=== PATIENT | female | born 1930 | race Caucasian/White ===

== ENCOUNTER 2017-08-05 13:49 | Emergency (ER) | payer OTHER ==
[~2017-08-05] VITALS: Ht 157.5 cm; Wt 58.7 kg
[2017-08-05 14:04] VITALS: TEMP 36.7; Ht 157.5 cm; Wt 58.7 kg
[2017-08-05] MEDS ORDERED: DONE10TA12 PO (15:43)
[2017-08-05] MEDS ORDERED: BIMA0.01 OPB (15:43)
[2017-08-05] MEDS ORDERED: ASPI81TA28 PO (15:43)
[2017-08-05] MEDS ORDERED: NMN10 PO (15:43)
[2017-08-05] MEDS ORDERED: BRIM0.2S OPB (15:43)
[2017-08-05] MEDS ORDERED: FERR325T18 PO (15:43)
[2017-08-05] MEDS ORDERED: CALC-354 PO (15:43)
[2017-08-05 16:06] LABS: BASO % 0.3 %; BASO ABS # 0.02 K/uL (0-0.2); COMPLETE YES; EOS % 1.7 %; HEMATOCRIT 38.9 % (37-47); IG% 0.2 %; LYMPH % 23.2 %; LYMPH ABS # 1.49 K/uL (1.2-3.4); MEAN CELL VOLUME 94.2 fL (80-100); MEAN CORPUSCULAR HEMOGLOBIN 31.2 pg (25-34); MEAN CORPUSCULAR HGB CONC 33.2 g/dl (32-36); MEAN PLATELET VOLUME 10.8 fL (7.4-10.4); NEUT % 62.6 %; PLATELET COUNT 180 K/uL (130-400); RED BLOOD COUNT 4.13 M/uL (4.2-5.4); WHITE BLOOD COUNT 6.41 K/uL (4.8-10.8)
[2017-08-05 16:16] LABS: PROTHROMBIN TIME (PATIENT) 10.7 SECONDS (9.0-12.0)
[2017-08-05 16:31] LABS: BLOOD UREA NITROGEN 15 mg/dl (7-18); BUN/CREATININE RATIO 22.4 (10-20); CALCIUM 8.9 mg/dl (8.5-10.1); CARBON DIOXIDE 29 mmol/L (21-32); CHLORIDE 102 mmol/L (98-107); CREATININE 0.67 mg/dl (0.60-1.20); GLUCOSE 85 mg/dl (70-99); POTASSIUM 3.7 mmol/L (3.5-5.1); SODIUM 137 mmol/L (136-145)
[2017-08-05 16:43] LABS: URINE APPEARANCE CLOUDY (CLEAR); URINE BILIRUBIN NEG (NEG); URINE COLOR YELLOW; URINE EPITHELIAL CELL AUTO >30 /lpf (0-5); URINE NITRITE POS (NEG); URINE PH 5.5 (4.5-7.5); UROBILINOGEN NEG (NEG)
[2017-08-05 16:46] LABS: MANUAL MICROSCOPIC REQUIRED? NO; REVIEW REQ? YES
--- NOTE | 2017-08-05 16:50 | DIAGNOSTIC IMAGING REPORT ---
HEAD CT NONCONTRAST CT DOSE: HISTORY: eval for bleed TECHNIQUE: Multiaxial CT images of the head were performed without the use of intravenous contrast. Automated exposure control was utilized for this study. A dose lowering technique was utilized adhering to the principles of ALARA. Comparison: None. Findings: Trace fluid within the right frontal ethmoid recess. The mastoid air cells are clear. Mild right infraorbital soft tissue swelling. The calvarium and skull base are intact. There is no mass, hematoma, midline shift, acute infarct. White matter hypodensity is nonspecific but suggestive of microvascular ischemic change. The ventricles and sulci demonstrate mild age-related involutional changes. 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 Impression: No acute intracranial abnormality. Atrophy and microvascular ischemic changes. Electronically signed by: Georges Sherwood M.D. 08/05/2017 4:48 PM Dictated Date/Time: 08/05/2017 4:44 PM
--- NOTE | 2017-08-05 16:55 | DIAGNOSTIC IMAGING REPORT ---
CT FACIAL BONES-MXILLOFAC WITHOUT CT DOSE: 742.57 mGy.cm CLINICAL HISTORY: Facial pain status post trauma COMPARISON STUDY: No previous studies for comparison. TECHNIQUE: Helical images were acquired in the transverse plane. The study was reviewed and analyzed on the independent 3-D workstation. A dose lowering technique was utilized adhering to the principles of ALARA. The pterygoid plates appear intact. The zygomatic arches appear intact. The globes appear intact. There is no evidence of orbital emphysema. There is a defect in the right lamina papyracea, likely but not definitively old. No orbital floor fractures are visualized. The mandibular condyles appear intact. There is a subtle nasal bone deformity, likely old. There is soft tissue swelling in the region of the right nasal orbital fold IMPRESSION: 1. Soft tissue swelling in the region of the right nasal orbital fold 2. Small age-indeterminate defect in the right lamina papyracea Electronically signed by: Avelino Hamilton M.D. 08/05/2017 4:54 PM Dictated Date/Time: 08/05/2017 4:48 PM
[2017-08-05] MEDS ORDERED: CIPROFLOXACIN 500 MG TAB PO STA (17:08)
[2017-08-05] MEDS ORDERED: CIPR-255 PO (17:08)
--- NOTE | 2017-08-05 17:09 | DIAGNOSTIC IMAGING REPORT ---
CHEST 2 VIEWS ROUTINE CLINICAL HISTORY: Suspected pneumonia. Cough. COMPARISON STUDY: No previous studies for comparison. FINDINGS: The heart is enlarged. There are postsurgical changes of a midline sternotomy and valvular replacement. There is mild interstitial thickening but no evidence of overt failure. There are no pleural effusions. There is no focal pulmonary consolidation. IMPRESSION: 1. Postsurgical changes. No evidence of focal pulmonary consolidation Electronically signed by: Avelino Hamilton M.D. 08/05/2017 5:08 PM Dictated Date/Time: 08/05/2017 5:06 PM
[2017-08-05 17:30] VITALS: BP 196/72; PULSE 68; O2SAT 96
--- NOTE | 2017-08-05 22:31 | EMERGENCY ROOM VISIT NOTE ---
History Report prepared by Elpidioibbrooke: Jailyn Vaca Under the Supervision of: Dr. Ilya Kyle M.D. First contact with patient: 15:00 Chief Complaint: URINARY SYMPTOMS Stated Complaint: UTI,FELL AND HIT HER R EYE Nursing Triage Summary: Pt has contusion around right eye. Pt family states she fell last night while getting out of bed. Also noticed patient has UTI symptoms like frequency and urgency. History of Present Illness The patient is an 87 year old female who presents to the Emergency Room with complaints of a fall last night. She is accompanied by family. She denies any urinary symptoms. Her family states she has been urinating more frequently and her urine has a foul odor. The patient reports she fell yesterday as she was getting out of bed to use the bathroom. She believes she tripped over something and injured the area around her right eye during the fall. She denies any LOC or feeling weak before she fell. She denies having any symptoms prior to the fall. She denies any melena or hematochezia. She also denies any neck pain, back pain or nausea. She did not injure her hips during the fall. She can still feel normal sensation in her legs. She does not take daily blood thinners. The patient admits to intermittent chest pain for a long time and states the last time she experienced the pain was last week. 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 A total of 10 systems reviewed and were otherwise negative. 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 Family History Cancer Diabetes mellitus Heart disease Lung disease Social History Smoking Status: Never Smoker Alcohol Use: none Drug Use: none Marital Status: Housing Status: lives with family Occupation Status: retired Current/Historical Medications Scheduled Aspirin (Aspirin Ec), 81 MG PO DAILY Bimatoprost (Lumigan), 1 DROPS OPB HS Brimonidine Tartrate-Timolol M (Combigan), 1 DROP OPB QAM Calcium Carbonate-Cholecalcife (Caltrate 600+D), 1 TAB PO BID Ciprofloxacin Hcl (Cipro), 500 MG PO BID Donepezil Hydrochloride (Aricept), 10 MG PO DAILY Ferrous Gluconate (Ferrous Gluconate), 324 MG PO DAILY Memantine (Namenda), 10 MG PO BID Allergies Coded Allergies: Naproxen (Verified Allergy, Unknown, RASH, HIVES, 08/05/17) Sulfa Antibiotics (Verified Allergy, Unknown, HIVES,RASH, 08/05/17) Physical Exam Vital Signs Date Time Temp Pulse Resp B/P (MAP) Pulse Ox O2 Delivery O2 Flow Rate FiO2 08/05/17 17:30 68 18 196/72 96 08/05/17 16:30 65 16 216/75 96 Room Air 08/05/17 15:40 59 14 199/67 96 Room Air 08/05/17 14:04 36.7 64 16 192/71 95 Room Air Physical Exam Constitutional: Vital signs reviewed. Eyes: Pupils are equal round reactive to light. Conjunctiva are noninjected. ENT: Pharynx is clear without erythema or exudate. Mucous membranes are moist. Neck supple without meningeal signs. No midline tenderness to the cervical spine. Ecchymosis under the right eye with tenderness over superior orbital rim. No givens's sign. No midfacial mobility or tenderness. Respiratory: Clear to auscultation bilaterally. Breath sounds are equal bilaterally. Cardiovascular: Regular rate and rhythm. No rubs or gallops. GI: Soft, nondistended and nontender. Bowel sounds are present. Musculoskeletal: No peripheral edema. No lower extremity tenderness. No hip or LE tenderness. No CVA tenderness. Integumentary: No cyanosis. Neurological: The patient is awake and alert. Cranial nerves II-XII are intact. Motor is 5 out of 5 all extremities. Sensation is intact to light touch all extremities. Normal speech. No pronator drift. Psychiatric: Normal affect. Medical Decision & Procedures ER Provider Diagnostic Interpretation: Radiology results as stated below per my review and the radiologist's interpretation: HEAD CT NONCONTRAST CT DOSE: HISTORY: eval for bleed TECHNIQUE: Multiaxial CT images of the head were performed without the use of intravenous contrast. Automated exposure control was utilized for this study. A dose lowering technique was utilized adhering to the principles of ALARA. Comparison: None. Findings: Trace fluid within the right frontal ethmoid recess. The mastoid air cells are clear. Mild right infraorbital soft tissue swelling. The calvarium and skull base are intact. There is no mass, hematoma, midline shift, acute infarct. White matter hypodensity is nonspecific but suggestive of microvascular ischemic change. The ventricles and sulci demonstrate mild age-related involutional changes. 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 Impression: No acute intracranial abnormality. Atrophy and microvascular ischemic changes. Electronically signed by: Georges Sherwood M.D. 08/05/2017 4:[address] FACIAL BONES-MXILLOFAC WITHOUT CT DOSE: 742.57 mGy.cm CLINICAL HISTORY: Facial pain status post trauma COMPARISON STUDY: No previous studies for comparison. TECHNIQUE: Helical images were acquired in the transverse plane. The study was reviewed and analyzed on the independent 3-D workstation. A dose lowering technique was utilized adhering to the principles of ALARA. The pterygoid plates appear intact. The zygomatic arches appear intact. The globes appear intact. There is no evidence of orbital emphysema. There is a defect in the right lamina papyracea, likely but not definitively old. No orbital floor fractures are visualized. The mandibular condyles appear intact. There is a subtle nasal bone deformity, likely old. There is soft tissue swelling in the region of the right nasal orbital fold IMPRESSION: 1. Soft tissue swelling in the region of the right nasal orbital fold 2. Small age-indeterminate defect in the right lamina papyracea Electronically signed by: Avelino Hamilton M.D. 08/05/2017 4:54 PM CHEST 2 VIEWS ROUTINE CLINICAL HISTORY: Suspected pneumonia. Cough. COMPARISON STUDY: No previous studies for comparison. FINDINGS: The heart is enlarged. There are postsurgical changes of a midline sternotomy and valvular replacement. There is mild interstitial thickening but no evidence of overt failure. There are no pleural effusions. There is no focal pulmonary consolidation. IMPRESSION: 1. Postsurgical changes. No evidence of focal pulmonary consolidation Electronically signed by: Avelino Hamilton M.D. 08/05/2017 5:08 PM Laboratory Results 08/05/17 15:55 Red Blood Count 4.13, Mean Corpuscular Volume 94.2, Mean Corpuscular Hemoglobin 31.2, Mean Corpuscular Hemoglobin Concent 33.2, Mean Platelet Volume 10.8, Neutrophils (%) (Auto) 62.6, Lymphocytes (%) (Auto) 23.2, Monocytes (%) (Auto) 12.0, Eosinophils (%) (Auto) 1.7, Basophils (%) (Auto) 0.3, Neutrophils # (Auto ) 4.01, Lymphocytes # (Auto) 1.49, Monocytes # (Auto) 0.77, Eosinophils # (Auto ) 0.11, Basophils # (Auto) 0.02 08/05/17 15:55 Test 08/05/17 15:55 08/05/17 16:28 White Blood Count 6.41 K/uL (4.8-10.8) Red Blood Count 4.13 M/uL (4.2-5.4) Hemoglobin 12.9 g/dL (12.0-16.0) Hematocrit 38.9 % (37-47) Mean Corpuscular Volume 94.2 fL (80-100) Mean Corpuscular Hemoglobin 31.2 pg (25-34) Mean Corpuscular Hemoglobin Concent 33.2 g/dl (32-36) Platelet Count 180 K/uL (130-400) Mean Platelet Volume 10.8 fL (7.4-10.4) Neutrophils (%) (Auto) 62.6 % Lymphocytes (%) (Auto) 23.2 % Monocytes (%) (Auto) 12.0 % Eosinophils (%) (Auto) 1.7 % Basophils (%) (Auto) 0.3 % Neutrophils # (Auto) 4.01 K/uL (1.4-6.5) Lymphocytes # (Auto) 1.49 K/uL (1.2-3.4) Monocytes # (Auto) 0.77 K/uL (0.11-0.59) Eosinophils # (Auto) 0.11 K/uL (0-0.5) Basophils # (Auto) 0.02 K/uL (0-0.2) RDW Standard Deviation 46.0 fL (36.4-46.3) RDW Coefficient of Variation 13.3 % (11.5-14.5) Immature Granulocyte % (Auto) 0.2 % Immature Granulocyte # (Auto) 0.01 K/uL (0.00-0.02) Prothrombin Time 10.7 SECONDS (9.0-12.0) Prothromb Time International Ratio 1.0 (0.9-1.1) Activated Partial Thromboplast Time 24.8 SECONDS (21.0-31.0) Partial Thromboplastin Ratio 1.0 Anion Gap 6.0 mmol/L (3-11) Est Creatinine Clear Calc Drug Dose 48.6 ml/min Estimated GFR () 92.9 Estimated GFR (Non- 80.2 BUN/Creatinine Ratio 22.4 (10-20) Calcium Level 8.9 mg/dl (8.5-10.1) Troponin I < 0.015 ng/ml (0-0.045) Urine Color YELLOW Urine Appearance CLOUDY (CLEAR) Urine pH 5.5 (4.5-7.5) Urine Specific [place] 1.020 (1.000-1.030) Urine Protein NEG (NEG) Urine Glucose (UA) NEG (NEG) Urine Ketones TRACE (NEG) Urine Occult Blood 2+ (NEG) Urine Nitrite POS (NEG) Urine Bilirubin NEG (NEG) Urine Urobilinogen NEG (NEG) Urine Leukocyte Esterase MODERATE (NEG) Urine WBC (Auto) >30 /hpf (0-5) Urine RBC (Auto) 0-4 /hpf (0-4) Urine Hyaline Casts (Auto) 5-10 /lpf (0-5) Urine Epithelial Cells (Auto) >30 /lpf (0-5) Urine Bacteria (Auto) 4+ (NEG) Laboratory results as reviewed by me. Medications Administered Medications (Trade) Dose Ordered Sig/Wilfredo Route Start Time Stop Time Status Last Admin Dose Admin Ciprofloxacin (Cipro Tab) 500 mg NOW STAT PO 08/05/17 17:08 08/05/17 17:09 DC 08/05/17 17:25 500 MG ECG Indication: weakness Rate (beats per minute): 65 Rhythm: normal sinus Findings: no acute ischemic change, other (LVH. Motion artifact) ED Course 1502: The patient was evaluated in room A12B. A complete history and physical exam was performed. 1705: I reevaluated the patient. I discussed her test results and she and her family verbalized complete understanding and agreement. 1708: Cipro 500 mg PO. Medical Decision This is an 87-year-old female who presents with a fall and urinary symptoms. Differential diagnosis includes UTI, pyelonephritis, urosepsis, orbital fracture , intracranial hemorrhage, contusion. I did perform a limited focused review of portions of the patient's old chart on the electronic medical record. The patient has had no prior visits to this hospital. I did evaluate the patient as noted above. The patient presents after a fall yesterday. She thinks she tripped on something and she hit her head. Her daughter also states that she has been complaining of urinary complaints with frequency and foul-smelling urine. IV access was established. The patient was placed on a continuous pole framer machine. I did order and personally review the patient's 12-lead EKG and chest x-ray as described above. I did order and review the patient's blood work as noted in the electronic medical record. Her lab work is unremarkable. Urinalysis does show signs of infection. A urine culture was sent. I did treat patient with Cipro. I did order a CT of the head and facial bones. I did review the images myself as well as the radiology report as described above. There is no evidence of intracranial hemorrhage but there is a potential defect in the right lamina papyracea. I did discuss the test results with the patient and her daughters. She was discharged with a prescription for Cipro. She was advised follow closely with her doctor. She was discharged in good condition. Head Trauma GCS Score: 15 Medication Reconcilliation Current Medication List: was personally reviewed by me Blood Pressure Screening Patient's blood pressure: Elevated blood pressure Blood pressure disposition: Referred to PCP Impression Primary Impression: Facial fracture Additional Impressions: Fall UTI (urinary tract infection) Scribe Attestation The scribe's documentation has been prepared under my direct and personally reviewed by me in its entirety. I confirm that the note above accurately reflects all work, treatment, procedures, and medical decision making performed by me. Departure Information Dispostion Home / Self-Care Prescriptions Ciprofloxacin Hcl (CIPRO) 500 Mg Tab 500 MG PO BID, #14 TAB Prov: Ilya Kyle M.D. 08/05/17 Referrals No Doctor, Assigned (PCP) Patient Instructions ED UTI Cystitis Female, Fx Facial, My [facility] Additional Instructions You have been examined and treated today on an emergency basis only. This is not a substitute for, or an effort to provide, complete comprehensive medical care. It is impossible to recognize and treat all injuries or illnesses in a single emergency department visit. It is therefore important that you follow up closely with your physician. Call as soon as possible for an appointment. Return for worsening symptoms or if you develop fever, vomiting, double vision, numbness or weakness on one side of your body, difficulties with your speech or walking, or any other concerning symptoms. Problem Qualifiers Primary Impression: Facial fracture Encounter type: initial encounter Facial bone/location: unspecified facial bone Fracture type: closed Qualified Codes: S02.92XA - Unspecified fracture of facial bones, initial encounter for closed fracture Additional Impressions: Fall Encounter type: initial encounter Qualified Codes: W19.XXXA - Unspecified fall, initial encounter UTI (urinary tract infection) Urinary tract infection type: acute cystitis Hematuria presence: without hematuria Qualified Codes: N30.00 - Acute cystitis without hematuria
== END 2017-08-05 17:28 | disposition home or self-care (01) ==
LOC: C.EDB 13:54 → C.EDA 17:28
DX: S02.92XA Unspecified fracture of facial bones, initial encounter for closed fracture (principal); N30.00 Acute cystitis without hematuria; F03.90 Unspecified dementia, unspecified severity, without behavioral disturbance, psychotic disturbance, mood disturbance, and anxiety; Z95.0 Presence of cardiac pacemaker; Z79.82 Long term (current) use of aspirin; Z79.899 Other long term (current) drug therapy; Z82.49 Family history of ischemic heart disease and other diseases of the circulatory system; Z83.3 Family history of diabetes mellitus; W19.XXXA Unspecified fall, initial encounter